=== PATIENT | female | born 1955 | race Caucasian/White ===

== ENCOUNTER 2018-11-25 14:39 | Emergency (ER) | payer MEDICARE, MEDICAID ==
[~2018-11-25] VITALS: Ht 160 cm; Wt 64.8 kg
[2018-11-25 14:47] VITALS: BP 111/71
== END 2018-11-25 15:44 | disposition home or self-care (01) ==
LOC: ED 15:12
DX: S63.512A Sprain of carpal joint of left wrist, initial encounter (principal); X50.0XXA Overexertion from strenuous movement or load, initial encounter; Y93.89 Activity, other specified; Y92.89 Other specified places as the place of occurrence of the external cause; Y99.8 Other external cause status
CPT/HCPCS: 29260; 99283

== ENCOUNTER 2019-09-10 22:49 | Emergency (ER) | payer MEDICARE, MEDICAID ==
[~2019-09-10] VITALS: Ht 160 cm; Wt 60.7 kg
[~2019-09-10 22:49] MED LIST: CELE200C PO; DULO30CA2 PO; LEVO25TA4 PO; SYNTHROID
--- NOTE | 2019-09-10 22:55 | NUR ---
PT UNABLE TO BE LOCATED IN THE LOBBY.
[2019-09-10 23:06] VITALS: BP 128/79
[2019-09-10] MEDS ORDERED: LORazepam 2 MG/ML, 1ML IVPush ONE (23:30)
[2019-09-10] MEDS ORDERED: LORazepam 2 MG/ML, 1ML ONE (23:33)
--- NOTE | 2019-09-10 23:39 | NUR ---
PT MEDICATED PER [facility]AR. 5 RIGHTS ADDRESSED
[2019-09-11 00:13] LABS: BASOPHILS # (AUTO) 0.02 x10^3/uL (0-0.1); BASOPHILS % (AUTO) 0 % (0-1); EOSINOPHILS # (AUTO) 0.06 x10^3/uL (0-0.4); EOSINOPHILS % (AUTO) 1 % (1-7); LYMPHOCYTES % (AUTO) 24 % (22-44); MD NO; MEAN CORPUSCULAR HEMOGLOBIN 31.2 pg (27.0-34.8); MEAN CORPUSCULAR HGB CONC 33.6 g/dL (32.4-35.8); MEAN CORPUSCULAR VOLUME 92.9 fL (80-100); MEAN PLATELET VOLUME 7.9 fL (7.4-10.4); MONOCYTES # (AUTO) 0.43 x10^3/uL (0.2-0.8); MONOCYTES % (AUTO) 9 % (2-9); NEUTROPHILS # (AUTO) 3.07 x10^3/uL (1.8-6.8); NEUTROPHILS % (AUTO) 66 % (42-75); PLATELET COUNT 250 x10^3/uL (130-400); RED BLOOD COUNT 4.31 x10^6/uL (3.82-5.3)
[2019-09-11 00:26] LABS: ALANINE AMINOTRANSFERASE 23 U/L (12-78); ALBUMIN 3.3 g/dL (3.4-5.0); ANION GAP 6 mmol/L (5-15); CALCIUM 8.5 mg/dL (8.5-10.1); CHLORIDE 112 mmol/L (98-107); CREATININE 0.77 mg/dL (0.55-1.02)
[2019-09-11 00:36] LABS: ALKALINE PHOSPHATASE 94 U/L (45-117); BILIRUBIN,TOTAL 0.1 mg/dL (0.2-1.0); TOTAL PROTEIN 6.5 g/dL (6.4-8.2)
--- NOTE | 2019-09-11 01:02 | NUR ---
Patient/Caregiver given discharge instructions and they have confirmed that they understand the instructions. Patient ambulatory with steady gait.
[2019-09-11 03:14] LABS: FREE T4 (FREE THYROXINE) 1.12 ng/dL (0.76-1.46)
== END 2019-09-11 04:08 | disposition home or self-care (01) ==
LOC: ED 09-11 00:28
DX: F41.1 Generalized anxiety disorder (principal); R06.4 Hyperventilation; F33.9 Major depressive disorder, recurrent, unspecified; Z72.9 Problem related to lifestyle, unspecified; E03.9 Hypothyroidism, unspecified
CPT/HCPCS: 36415; 80053; 80307; 84439; 84443; 85025; 96374; 99283; J2060

== ENCOUNTER 2019-10-04 07:20 | Day surgery (SDC) | payer MEDICARE, MEDICAID ==
[~2019-10-04] VITALS: Ht 160 cm; Wt 58.0 kg
[2019-10-04] MEDS ORDERED: LIDOCAINE-MPF 2% ,5ML ONE (07:26)
[2019-10-04] MEDS ORDERED: PROPOFOL 10 MG/ML, 20ML ONE (07:26)
[2019-10-04] MEDS ORDERED: MIDAZOLAM 1 MG/ML, 2ML ONE (07:26)
[2019-10-04] MEDS ORDERED: FENTANYL PF 250 MCG/5ML ONE (07:26)
[2019-10-04] MEDS ORDERED: ROCURONIUM 10MG/ML,5ML ONE (07:26)
[2019-10-04] MEDS ORDERED: EPINEPHRINE 1 MG/ML, 1ML ONE (07:27)
[2019-10-04] MEDS ORDERED: CEFAZOLIN 1,000 MG ONE ×2 (07:27)
[2019-10-04] MEDS ORDERED: ONDANSETRON 2MG/ML, 2ML ONE (07:27)
[2019-10-04] MEDS ORDERED: DEXAMETHASONE 4 MG/ML, 1ML ONE ×2 (07:27)
[2019-10-04] MEDS ORDERED: ROPIvacaine/PF 0.5%, 30 ML ONE (07:27)
[2019-10-04 07:38] VITALS: BP 115/72
[2019-10-04] MEDS ORDERED: LACTATED RINGERS 1,000 ML IV SCH (07:48)
[2019-10-04] MEDS ORDERED: ACETAMINOPHEN 500 MG TABLET PO ONE (08:00)
[2019-10-04] MEDS ORDERED: BUPIVACAINE/PF 0.5% ONE (08:52)
[2019-10-04] MEDS ORDERED: LIDOCAINE 1%, 20ML ONE (08:53)
[2019-10-04] MEDS: FENTANYL PF 100 MCG/2ML IV PRN ×4 (09:50→10:18)
[2019-10-04] MEDS ORDERED: FENTANYL PF 100 MCG/2ML ONE (09:51)
[2019-10-04] MEDS ORDERED: HYDROmorphone 2 MG/ML, 1ML IVPush PRN (11:00)
[2019-10-04] MEDS ORDERED: OXYcodone 5 MG/5 ML ORAL.SOL UDC PO PRN (11:00)
[2019-10-04] MEDS ORDERED: ONDANSETRON 2MG/ML, 2ML IV PRN (11:00)
[2019-10-04] MEDS ORDERED: MEPERIDINE/PF 25MG/ML,1ML IVPush PRN (11:00)
[2019-10-04] MEDS ORDERED: LORazepam 2 MG/ML, 1ML IVPush PRN (11:00)
== END 2019-10-04 13:30 | disposition home or self-care (01) ==
LOC: OUT 07:20
PROVIDERS: ATTEND Orthopaedic Surgery
DX: M25.774 Osteophyte, right foot (principal); Q66.89 Other specified congenital deformities of feet; M89.8X7 Other specified disorders of bone, ankle and foot; E03.9 Hypothyroidism, unspecified; F32.9 Major depressive disorder, single episode, unspecified; M19.90 Unspecified osteoarthritis, unspecified site; M79.7 Fibromyalgia; Z79.1 Long term (current) use of non-steroidal anti-inflammatories (NSAID); Z79.890 Hormone replacement therapy; Z79.899 Other long term (current) drug therapy; Z87.891 Personal history of nicotine dependence; Z88.5 Allergy status to narcotic agent; Z88.8 Allergy status to other drugs, medicaments and biological substances; Z98.890 Other specified postprocedural states; Z82.61 Family history of arthritis; Z82.3 Family history of stroke; Z82.49 Family history of ischemic heart disease and other diseases of the circulatory system
CPT/HCPCS: 28122; 28124; 28232; 93005; J0690; J1100; J2250; J2405; J2704; J3010; J7120; J0171; J2795

== ENCOUNTER 2020-02-20 16:17 | Emergency (ER) | payer MEDICARE, MEDICAID ==
[~2020-02-20] VITALS: Ht 160 cm; Wt 64.0 kg
[2020-02-20] MEDS ORDERED: ONDANSETRON ODT 4 MG PO ONE (16:30)
[2020-02-20] MEDS ORDERED: HYDROmorphone 2 MG/ML, 1ML IM PRN (16:30)
[2020-02-20] MEDS ORDERED: KETOROLAC 30 MG/1 ML IM ONE (16:30)
[2020-02-20 16:31] VITALS: BP 105/59
[2020-02-20] MEDS ORDERED: KETOROLAC 60 MG/2 ML ONE (16:35)
[2020-02-20] MEDS ORDERED: HYDROmorphone 1 MG/ML, 1ML INJ ONE (16:35)
[2020-02-20] MEDS ORDERED: ONDANSETRON ODT 4 MG ONE (16:35)
== END 2020-02-20 19:03 | disposition home or self-care (01) ==
LOC: ED 18:07
DX: M54.6 Pain in thoracic spine (principal); F11.20 Opioid dependence, uncomplicated; E03.9 Hypothyroidism, unspecified; F17.200 Nicotine dependence, unspecified, uncomplicated
CPT/HCPCS: 71046; 72050; 96372; 99284; J1170; J1885; Q0162

== ENCOUNTER 2020-05-15 17:18 | Emergency (ER) | payer MEDICARE, MEDICAID ==
[~2020-05-15] VITALS: Ht 160 cm; Wt 57.5 kg
[2020-05-15 17:23] VITALS: BP 132/78
[2020-05-15] MEDS ORDERED: NOREPINEPHRINE 8 MG in SODIUM CHLORIDE 0.9% 242 ML IV PRN (18:00)
== END 2020-05-15 18:45 | disposition home or self-care (01) ==
LOC: ED 18:30
DX: S63.512A Sprain of carpal joint of left wrist, initial encounter (principal); S40.811A Abrasion of right upper arm, initial encounter; E03.9 Hypothyroidism, unspecified; F17.210 Nicotine dependence, cigarettes, uncomplicated; W11.XXXA Fall on and from ladder, initial encounter; Y93.89 Activity, other specified; Y92.096 Garden or yard of other non-institutional residence as the place of occurrence of the external cause; Y99.8 Other external cause status
CPT/HCPCS: 99283; 99406

== ENCOUNTER 2020-07-30 08:36 | Outpatient (CLI) | payer MEDICARE, MEDICAID | END 2020-07-30 23:59 | disposition home or self-care (01) | LOC: CFH 08:36 | PROVIDERS: ATTEND Physician Assistant | DX: S13.140A Subluxation of C3/C4 cervical vertebrae, initial encounter (principal); M85.88 Other specified disorders of bone density and structure, other site; M81.0 Age-related osteoporosis without current pathological fracture; X58.XXXA Exposure to other specified factors, initial encounter; Y93.89 Activity, other specified; Y92.89 Other specified places as the place of occurrence of the external cause; Y99.8 Other external cause status | CPT/HCPCS: 72040; 77080 ==

== ENCOUNTER 2020-08-05 09:02 | Outpatient (CLI) | payer MEDICARE, MEDICAID ==
[2020-08-05] MEDS ORDERED: MIDAZOLAM 1 MG/ML, 5ML ONE ×2 (11:40)
[2020-08-05] MEDS ORDERED: FENTANYL PF 100 MCG/2ML ONE (11:40)
== END 2020-08-05 23:59 | disposition home or self-care (01) ==
LOC: RAD 09:02
PROVIDERS: ATTEND Physician Assistant
DX: M81.0 Age-related osteoporosis without current pathological fracture (principal); M54.2 Cervicalgia; M48.02 Spinal stenosis, cervical region; Z79.899 Other long term (current) drug therapy; Z88.5 Allergy status to narcotic agent; Z98.1 Arthrodesis status
CPT/HCPCS: 72141; 99156; 99157; J2250; J3010

== ENCOUNTER 2020-12-05 01:21 | Emergency (ER) | payer MEDICARE, MEDICAID ==
[~2020-12-05] VITALS: Ht 160 cm; Wt 63.6 kg
--- NOTE | 2020-12-05 01:50 | NUR ---
Pt to CT, xray will medicate per order upon return.
[2020-12-05] MEDS ORDERED: HYDROcodone/APAP 5/325 TABLET PO ONE (02:00)
[2020-12-05] MEDS ORDERED: HYDROcodone/APAP 5/325 TABLET ONE (02:04)
[2020-12-05 04:00] VITALS: BP 94/54
== END 2020-12-05 04:15 | disposition home or self-care (01) ==
LOC: ED 04:00
DX: S16.1XXA Strain of muscle, fascia and tendon at neck level, initial encounter (principal); S09.90XA Unspecified injury of head, initial encounter; Z72.9 Problem related to lifestyle, unspecified; F17.210 Nicotine dependence, cigarettes, uncomplicated; F12.10 Cannabis abuse, uncomplicated; X58.XXXA Exposure to other specified factors, initial encounter; Y93.89 Activity, other specified; Y92.89 Other specified places as the place of occurrence of the external cause; Y99.8 Other external cause status
CPT/HCPCS: 70450; 72125; 99285; 99406

== ENCOUNTER 2021-02-08 13:03 | Emergency (ER) | payer MEDICARE, MEDICAID ==
[~2021-02-08] VITALS: Ht 160 cm; Wt 63.5 kg
--- NOTE | 2021-02-08 13:10 | NUR ---
NO ANSWER TO TRIAGE FROM LOBBY
--- NOTE | 2021-02-08 14:44 | NUR ---
designer/writer: Pt ambulatory to room from lobby at this time.
[2021-02-08 14:59] LABS: BASOPHILS % (AUTO) 0 % (0-1); EOSINOPHILS % (AUTO) 1 % (1-7); LYMPHOCYTES % (AUTO) 9 % (22-44); MEAN CORPUSCULAR HEMOGLOBIN 30.9 pg (27.0-34.8); MEAN CORPUSCULAR HGB CONC 33.1 g/dL (32.4-35.8); MEAN PLATELET VOLUME 7.9 fL (7.4-10.4); MONOCYTES % (AUTO) 15 % (2-9); NEUTROPHILS % (AUTO) 75 % (42-75); PLATELET COUNT 179 x10^3/uL (130-400); RED BLOOD COUNT 4.45 x10^6/uL (3.82-5.3); RED CELL DISTRIBUTION WIDTH 13.5 % (9.6-15.2)
[2021-02-08 15:11] LABS: ALBUMIN 3.3 g/dL (3.4-5.0); ANION GAP 3 mmol/L (5-15); CALCIUM 8.8 mg/dL (8.5-10.1); CHLORIDE 110 mmol/L (98-107)
[2021-02-08 15:15] LABS: ALANINE AMINOTRANSFERASE 29 U/L (12-78); ALKALINE PHOSPHATASE 105 U/L (45-117); BILIRUBIN,TOTAL 0.2 mg/dL (0.2-1.0); CREATININE 0.85 mg/dL (0.55-1.02); TOTAL PROTEIN 6.6 g/dL (6.4-8.2)
--- NOTE | 2021-02-08 15:29 | NUR ---
PT HERE FOR C/O GRIDER X5 DAYS AND NECK PAIN X2 DAYS, PT STATES "I HURT ALL OVER". PT PLACED ON VITALS MONITORS, CALL LIGHT PLACED WITHIN REACH, PT'S MOTHER AT BEDSIDE.
--- NOTE | 2021-02-08 15:55 | NUR ---
DR. CHONG AT BEDSIDE FOR EVAL.
[2021-02-08 16:32] LABS: MICROSCOPIC NOT IND
--- NOTE | 2021-02-08 17:22 | NUR ---
Covering primary for break, pt c/o headache. Waiting for ERP re-eval/dispo. AIDET provided.
[2021-02-08] MEDS ORDERED: KETOROLAC 30 MG/1 ML IVPush ONE (17:30)
[2021-02-08] MEDS ORDERED: HYDROmorphone 1 MG/ML, 1ML INJ ONE (17:50)
[2021-02-08] MEDS ORDERED: KETOROLAC 30 MG/1 ML ONE (17:50)
[2021-02-08] MEDS ORDERED: METOCLOPRAMIDE 5 MG/ML, 2ML ONE (17:50)
[2021-02-08] MEDS ORDERED: HYDROmorphone 1 MG/ML, 1ML INJ IV ONE (18:00)
[2021-02-08] MEDS ORDERED: METOCLOPRAMIDE 5 MG/ML, 2ML IVPush ONE (18:00)
--- NOTE | 2021-02-08 18:56 | NUR ---
PT TRANSPORTED TO CT.
--- NOTE | 2021-02-08 19:08 | NUR ---
PT BACK FROM CT, STATES SHE FEELS MUCH BETTER. VSS.
[2021-02-08 20:27] VITALS: BP 109/68
== END 2021-02-08 20:28 | disposition home or self-care (01) ==
LOC: ED 17:19
DX: U07.1 COVID-19 (principal); M79.18 Myalgia, other site; R51.9 Headache, unspecified; F17.210 Nicotine dependence, cigarettes, uncomplicated; R74.8 Abnormal levels of other serum enzymes; R94.31 Abnormal electrocardiogram [ECG] [EKG]
CPT/HCPCS: 36415; 70450; 71045; 80053; 81003; 83690; 85025; 93005; 96374; 96375; 99285; J1170; J1885; J2765; U0003; U0005